=== PATIENT | male | born 1955 | race Caucasian/White ===

== ENCOUNTER → 2016-07-24 | Outpatient (CLI) | payer OTHER ==
[~2016-07-24] MED LIST: NAPR1TAB9 PO; PSEU60TA80 PO; TPRSR25 PO
[2016-07-24 17:46] LABS: HEMATOCRIT 44.9 % (42-52); MEAN CELL VOLUME 91.3 fL (80-100); MEAN CORPUSCULAR HEMOGLOBIN 30.1 pg (25-34); MEAN PLATELET VOLUME 10.9 fL (7.4-10.4); PLATELET COUNT 310 K/uL (130-400); RED BLOOD COUNT 4.92 M/uL (4.7-6.1)
[2016-07-24 17:52] LABS: CALCIUM 9.3 mg/dl (8.5-10.1)
[2016-07-24 17:55] LABS: ALT/SGPT 24 U/L (12-78); AST/SGOT 20 U/L (15-37); BLOOD UREA NITROGEN 19 mg/dl (7-18); BUN/CREATININE RATIO 16.8 (10-20); CARBON DIOXIDE 27 mmol/L (21-32); CHLORIDE 105 mmol/L (98-107); GLUCOSE 113 mg/dl (70-99); POTASSIUM 4.1 mmol/L (3.5-5.1); SODIUM 139 mmol/L (136-145)
[2016-07-24 18:05] LABS: ALB/GLOB RATIO 1.2 (0.9-2); ALKALINE PHOSPHATASE 64 U/L (45-117); RHEUMATOID FACTOR < 10.0 U/mL (0-15)
[2016-07-24 18:15] LABS: BASO ABS # 0.14 K/uL (0-0.2); BASOPHIL % 1.8 % (0-2); EOSINOPHIL % 1.8 %; LYMPH ABS # 1.38 K/uL (1.2-3.4); LYMPHOCYTE % 17.9 %; NEUTROPHILS % 71.4 %
[2016-07-24 18:18] LABS: MDIFF REQUEST YES
[2016-07-24 19:02] LABS: LYME DISEASE AB IGG NEG (NEG); LYME DISEASE AB IGM NEG (NEG)
== END | disposition home or self-care (01) ==
LOC: C.RADBC 13:34
PROVIDERS: ATTEND Family Medicine
DX: Z11.59 Encounter for screening for other viral diseases (principal); R53.83 Other fatigue

== ENCOUNTER → 2016-08-12 | Outpatient (CLI) | payer OTHER ==
--- NOTE | 2016-08-12 15:56 | DIAGNOSTIC IMAGING REPORT ---
LEFT HAND MIN 3 VIEWS ROUTINE CLINICAL HISTORY: Z79.1 NSAID long-term [id number] dyspnea COMPARISON: None. DISCUSSION: Moderate degenerative change of the interphalangeal joints throughout. No significant periarticular osteopenia. Mild degenerative change of the first carpometacarpal joint. There is no evidence for soft tissue swelling. IMPRESSION: Moderate degenerative change of the interphalangeal joints. Electronically signed by: Rafal Mistry M.D. 08/12/2016 3:55 PM Dictated Date/Time: 08/12/2016 3:54 PM
--- NOTE | 2016-08-12 15:59 | DIAGNOSTIC IMAGING REPORT ---
RIGHT HAND MIN 3 VIEWS ROUTINE CLINICAL HISTORY: Z79.1 NSAID long-term [id number] Right pain COMPARISON: None. DISCUSSION: Moderate degenerative change of the interphalangeal joints throughout the right hand. Mild degenerative change first carpometacarpal joint. No significant marginal erosions. Bone mineralization is normal. There is no evidence for soft tissue swelling. IMPRESSION: Moderate degenerative change of the interphalangeal joints throughout. Electronically signed by: Rafal Mistry M.D. 08/12/2016 3:57 PM Dictated Date/Time: 08/12/2016 3:57 PM
[2016-08-12 17:06] LABS: TOTAL IRON BINDING CAPACITY 261 mcg/dl (250-450)
== END | disposition home or self-care (01) ==
LOC: C.RAD1850 15:06
PROVIDERS: ATTEND Internal Medicine Rheumatology
DX: Z79.1 Long term (current) use of non-steroidal anti-inflammatories (NSAID) (principal)

== ENCOUNTER → 2016-08-15 | Outpatient (CLI) | payer OTHER ==
--- NOTE | 2016-08-15 10:49 | DIAGNOSTIC IMAGING REPORT ---
FLUOROSCOPICALLY GUIDED RIGHT HIP INTRA-ARTICULAR STEROID INJECTION CLINICAL HISTORY: Right hip degenerative joint disease FLUOROSCOPY TIME: 15 seconds. PROCEDURE: The procedure, risks and benefits were discussed with the patient and informed written consent was obtained. The procedure was performed by Dr. Daniel following a timeout. Skin overlying the right hip was prepped and draped in sterile fashion and local anesthesia was achieved with 1% lidocaine. Under intermittent fluoroscopic guidance, a 3 1/2 inch 22-gauge spinal needle was directed into the right hip joint. Positioning within the joint space was confirmed with injection of 1 cc of Optiray 300. At this time, 2 cc of Celestone and 8 cc of 0.5% Marcaine was injected into the right hip joint. The needle was removed. The patient tolerated the procedure well and no immediate complications were evident. IMPRESSION: Fluoroscopically guided right hip intra-articular injection of 2 cc of Celestone and 8 cc of 0.5% Marcaine. Electronically signed by: Joe Daniel M.D. 08/15/2016 10:47 AM Dictated Date/Time: 08/15/2016 10:45 AM
== END | disposition home or self-care (01) ==
LOC: C.RADBC 09:44
PROVIDERS: ATTEND Orthopaedic Surgery
DX: M16.11 Unilateral primary osteoarthritis, right hip (principal)

== ENCOUNTER → 2016-08-18 | Outpatient (CLI) | payer OTHER ==
--- NOTE | 2016-08-18 16:40 | DIAGNOSTIC IMAGING REPORT ---
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 Bilateral knee and right hip pain. COMPARISON STUDY: MRI of the left ankle dated 04/13/2014, hip anesthetic injection dated 08/15/2016 FINDINGS: The patient was injected with 26.5 mCi of technetium 99m MDP. Three-hour delayed whole body images were acquired. There are foci of increased activity involving each wrist at the level of the first carpometacarpal joints. The findings are felt to be degenerative. There is a focus of increased activity involving the mid left tibial shaft. This is likely secondary to the patient's reported prior compound fracture. There is a focus of increased activity within the left ankle. This is likely arthritic given history of prior trauma. There is intense focus of increased activity within the right hip. This is likely arthritic given the patient's known arthritis and steroid injections. There is an intense focus of increased activity involving the distal left femur/left knee. This is likely degenerative. IMPRESSION: Areas of degenerative and posttraumatic activity as described above. Electronically signed by: Kevin Beckham M.D. 08/18/2016 4:39 PM Dictated Date/Time: 08/18/2016 4:34 PM
== END | disposition home or self-care (01) ==
LOC: C.NUCL 12:27
PROVIDERS: ATTEND Internal Medicine Rheumatology
DX: Z79.1 Long term (current) use of non-steroidal anti-inflammatories (NSAID) (principal)

== ENCOUNTER → 2016-10-07 | Outpatient (CLI) | payer OTHER | END | disposition home or self-care (01) | LOC: C.LAB1850 13:05 | PROVIDERS: ATTEND Internal Medicine Rheumatology | DX: R70.0 Elevated erythrocyte sedimentation rate (principal) ==

== ENCOUNTER → 2016-11-13 | Outpatient (CLI) | payer OTHER | END | disposition home or self-care (01) | LOC: C.LAB1850 13:31 | PROVIDERS: ATTEND Internal Medicine Rheumatology | DX: M17.0 Bilateral primary osteoarthritis of knee (principal); M35.3 Polymyalgia rheumatica ==

== ENCOUNTER → 2016-12-18 | Outpatient (CLI) | payer OTHER | END | disposition home or self-care (01) | LOC: C.LAB1850 09:34 | PROVIDERS: ATTEND Internal Medicine Rheumatology | DX: R70.0 Elevated erythrocyte sedimentation rate (principal) ==

== ENCOUNTER → 2017-02-04 | Outpatient (CLI) | payer OTHER ==
--- NOTE | 2017-02-04 11:13 | DIAGNOSTIC IMAGING REPORT ---
Mery LOTT SHLDR,HIP,KNEE CLINICAL HISTORY: 61 years-old Male presenting with RIGHT HIP PAIN. COMPARISON: 08/15/2016. PROCEDURE: The risks, benefits, and alternatives to the procedure were discussed with the patient. Written informed consent was obtained. The patient was placed supine on the fluoroscopy table, and a right hip injection was performed under fluoroscopic guidance. The area was prepped and draped in the usual sterile fashion. The skin and soft tissues anesthetized with local 1% lidocaine. The right hip joint was accessed utilizing a 22-gauge needle. Approximately 1 mL of Optiray 300 was injected into the joint space under fluoroscopic guidance to confirm intra-articular positioning. Subsequently, a 10 mL mixture containing 8 mL of 0.5% Bupivacaine and 2 mL of betamethasone was injected into the joint. The procedure was well tolerated without immediate complication. Fluoroscopy dosage (mGy): Not available. Fluoroscopy time: 12 seconds. Number of fluoroscopic spot images: 0. IMPRESSION: Successful injection of the right hip under fluoroscopic guidance. Electronically signed by: Myron Salinas M.D. 02/04/2017 11:12 AM Dictated Date/Time: 02/04/2017 11:11 AM
== END | disposition home or self-care (01) ==
LOC: C.RADBC 09:36
PROVIDERS: ATTEND Orthopaedic Surgery
DX: M16.11 Unilateral primary osteoarthritis, right hip (principal)

== ENCOUNTER → 2017-03-11 | Outpatient (CLI) | payer OTHER ==
[~2017-03-11] MED LIST changes: +ACET-24 PO; +ASPI-320 PO; +CLBPO15 TOP; +NAPR-1231 PO; +RXC5 PO
[2017-03-11 14:37] LABS: BASO % 0.7 %; BASO ABS # 0.05 K/uL (0-0.2); EOS % 1.4 %; HEMATOCRIT 42.1 % (42-52); HEMOGLOBIN 14.3 g/dL (14.0-18.0); IG# 0.02 K/uL (0.00-0.02); LYMPH % 19.5 %; LYMPH ABS # 1.37 K/uL (1.2-3.4); MEAN CELL VOLUME 91.3 fL (80-100); MEAN PLATELET VOLUME 10.8 fL (7.4-10.4); MONO % 8.8 %; MONO ABS # 0.62 K/uL (0.11-0.59); NEUT % 69.3 %; NEUT ABS # 4.86 K/uL (1.4-6.5); PLATELET COUNT 256 K/uL (130-400); RED CELL DISTRIBUTION WIDTH CV 13.4 % (11.5-14.5); RED CELL DISTRIBUTION WIDTH SD 43.9 fL (36.4-46.3); WHITE BLOOD COUNT 7.02 K/uL (4.8-10.8)
[2017-03-11 16:36] LABS: ALBUMIN 4.3 gm/dl (3.4-5.0); ALKALINE PHOSPHATASE 53 U/L (45-117); ALT/SGPT 24 U/L (12-78); AST/SGOT 20 U/L (15-37); CREATININE 0.93 mg/dl (0.60-1.40); TOTAL PROTEIN 7.8 gm/dl (6.4-8.2)
== END | disposition home or self-care (01) ==
LOC: C.LAB1850 13:51
PROVIDERS: ATTEND Internal Medicine Rheumatology
DX: Z79.1 Long term (current) use of non-steroidal anti-inflammatories (NSAID) (principal)

== ENCOUNTER 2017-04-02 09:59 | Emergency (ER) | payer OTHER ==
[~2017-04-02] VITALS: Ht 180.3 cm; Wt 90.2 kg
[~2017-04-02 09:59] MED LIST changes: -ACET-24 PO; -ASPI-320 PO; -CLBPO15 TOP; -NAPR-1231 PO; -RXC5 PO
[2017-04-02 10:12] VITALS: TEMP 36.7; Ht 180.3 cm; Wt 90.2 kg
--- NOTE | 2017-04-02 11:04 | EMERGENCY ROOM VISIT NOTE ---
History Report prepared by Wolf: Ebony Flynn Under the Supervision of: Dr. Edgar Mijares D.O. First contact with patient: 10:52 Chief Complaint: KNEEPAIN Stated Complaint: L KNEE, HURT YESTERDAY History of Present Illness The patient is a 61 year old male who presents to the Emergency Room with complaints of an episode of a left knee injury occurring yesterday. The patient states he was getting out of his car when he "tweaked it". His pain worsens with movement. The patient states his knee aches and is swollen. He denies any fever, chills, nausea, chest pain, or abdominal pain. The patient states he is scheduled to get a right hip replacement in May. The patient states because of his "bad" right hip, he has been compromising by using his left leg. The patient states he wants an MRI on his knee. Source of History: patient Onset: yesterday Position: knee (left) Quality: other (injury) Timing: other (episode) Modifying Factors (Worsening): movement Associated Symptoms: No fevers, No chills, No chest pain, No nausea, No abdominal pain Review of Systems See HPI for pertinent positives & negatives. A total of 6 systems reviewed and were otherwise negative. Past Medical & Surgical Medical Problems: (1) Acid reflux (2) Chest pain Family History No pertinent family history Social History Smoking Status: Never Smoker Alcohol Use: none Drug Use: none Marital Status: Housing Status: lives with family Occupation Status: employed Current/Historical Medications Scheduled Naproxen (Naproxen), 500-1,000 MG PO UD Scheduled PRN Naproxen (Aleve), 220 MG PO UD PRN for Pain Pseudoephedrine-Guaifenesin (Mucinex D), 1 TAB PO QAM PRN for Congestion Allergies Coded Allergies: Cephalexin (Verified Allergy, Intermediate, RASH, 04/02/17) Amoxicillin (Unverified Allergy, Unknown, RASH, 04/02/17) Fentanyl (Unverified Allergy, Unknown, slows heart beat and feels like he is going to , 04/02/17) Penicillins (Verified Allergy, Unknown, RASH, 04/02/17) Azithromycin (Unverified Adverse Reaction, Unknown, HEART RACES, 04/02/17) Physical Exam Vital Signs Date Time Temp Pulse Resp B/P (MAP) Pulse Ox O2 Delivery O2 Flow Rate FiO2 04/02/17 11:57 79 18 145/83 96 Room Air 04/02/17 10:12 36.7 92 20 137/91 96 Room Air Physical Exam GENERAL: Patient is awake, alert, and in no acute distress. Patient is resting comfortably and showing no signs of anxiety EYES: The conjunctivae are clear. The pupils are round and reactive. EARS, NOSE, MOUTH AND THROAT: The nose is without any evidence of any deformity. Mucous membranes are moist tongue is midline NECK: The neck is nontender and supple. RESPIRATORY: Normal respiratory effort is noted there is no evidence of wheezing rhonchi or rales CARDIOVASCULAR: Regular rate and rhythm noted there no murmurs rubs or gallops normal S1 normal S2 GASTROINTESTINAL: The abdomen is soft. Bowel sounds are present in all quadrants. Abdomen is nontender MUSCULOSKELETAL/EXTREMITIES: Decreased ROM and small effusion on left knee, no erythema or warmth to joint, tenderness with medial and lateral stability testing. There is no evidence of gross deformity full range of motion is noted in the hips and shoulders SKIN: There is no obvious evidence of any rash. There are no petechiae, pallor or cyanosis noted. NEUROLOGIC: Patient is awake alert and oriented x3 Medical Decision & Procedures ER Provider Diagnostic Interpretation: Radiology results as stated below per my review and radiologist interpretation: L KNEE 1 OR 2 VIEWS ROUTINE DISCUSSION: Considerable degenerative change all major joint compartments. Very small joint effusion. Several synovial calcifications posterior to the proximal tibia and fibula. Small reactive osteophytic change throughout. No evidence of fracture or dislocation. There is no evidence for soft tissue swelling. IMPRESSION: Significant degenerative change. Several synovial calcifications. Moderate degenerative reactive osteophytic change throughout. Very small joint effusion. The above report was generated using voice recognition software. It may contain grammatical, syntax or spelling errors. Electronically signed by: Rafal Mistry M.D. ED Course 1056: The patient was evaluated in room A12B. A complete history and physical examination were performed. 1151: Conversation with case reviewer. We will try to get the patient an appointment with Damien. 1152: I updated the patient on his test results. 1158: Upon reevaluation, the patient is resting comfortably. I discussed the results and treatment plan with him. He verbalized agreement of the treatment plan. The patient was discharged home. Medical Decision Differential diagnosis: Etiologies such as fracture, dislocation, neurovascular compromise, compartment syndrome, soft tissue injury, as well as others were entertained. Nursing notes reviewed. The patient is a 61-year-old male who injured his left leg and started noticing some swelling. He does not describe a definite trauma but states he's been having some pain in this knee. There is no erythema or warmth to the knee. The patient was requesting an MRI. An x-ray did not show definite bony abnormality and only showed a small fusion. At this time I do not patient requires an MRI but I did offer to do an arthrocentesis to rule out an infection in the knee. The patient did not wish to have an arthrocentesis at this time. I discussed his case with the on-call case reviewer. They were able to get the patient appointment with his primary orthopedic physician. He was encouraged to continue all medications as prescribed and follow-up with his primary care physician as well as his primary orthopedist as soon as possible. Otherwise she was encouraged to return the emergency Department immediately if symptoms change worsen or the need arises. Medication Reconcilliation Current Medication List: was personally reviewed by me Blood Pressure Screening Patient's blood pressure: Elevated blood pressure Blood pressure disposition: Elevated BP felt to be situational Impression Primary Impression: Effusion of left knee Additional Impression: suspect internal derangement of left knee Scribe Attestation The scribe's documentation has been prepared under my direction and personally reviewed by me in its entirety. I confirm that the note above accurately reflects all work, treatment, procedures, and medical decision making performed by me. Departure Information Dispostion Home / Self-Care Referrals Kory Crespo D.O. (PCP) Forms HOME CARE DOCUMENTATION FORM, IMPORTANT VISIT INFORMATION Patient Instructions ED Effusion Knee, My [facility] Additional Instructions Follow-up with your primary orthopedic physician as scheduled. Continue to use an Alberto wrap as instructed. Continue all other medications as prescribed. Problem Qualifiers
--- NOTE | 2017-04-02 11:28 | DIAGNOSTIC IMAGING REPORT ---
L KNEE 1 OR 2 VIEWS ROUTINE CLINICAL HISTORY: swelling pain. Edema. COMPARISON: None. DISCUSSION: Considerable degenerative change all major joint compartments. Very small joint effusion. Several synovial calcifications posterior to the proximal tibia and fibula. Small reactive osteophytic change throughout. No evidence of fracture or dislocation. There is no evidence for soft tissue swelling. IMPRESSION: Significant degenerative change. Several synovial calcifications. Moderate degenerative reactive osteophytic change throughout. Very small joint effusion. The above report was generated using voice recognition software. It may contain grammatical, syntax or spelling errors. Electronically signed by: Rafal Mistry M.D. 04/02/2017 11:27 AM Dictated Date/Time: 04/02/2017 11:26 AM
[2017-04-02] MEDS ORDERED: NAPR500T3 PO (11:55)
[2017-04-02 11:57] VITALS: BP 145/83; PULSE 79; O2SAT 96
== END 2017-04-02 12:11 | disposition home or self-care (01) ==
LOC: C.EDB 10:01 → C.EDA 12:11
DX: M25.462 Effusion, left knee (principal); X50.9XXA Other and unspecified overexertion or strenuous movements or postures, initial encounter; K21.9 Gastro-esophageal reflux disease without esophagitis

== ENCOUNTER → 2017-05-01 | Outpatient (CLI) | payer OTHER ==
[~2017-05-01] MED LIST changes: +NAPR500T3 PO; -TPRSR25 PO
--- NOTE | 2017-05-01 10:42 | DIAGNOSTIC IMAGING REPORT ---
R INJ MAJOR JNT SHLDR,HIP,KNEE CLINICAL HISTORY: DJD RT HIPpain COMPARISON STUDY: None FLUOROSCOPY TIME: 14 seconds. FINDINGS: Following description of procedure and informed consent, fluoroscopic guidance was utilized to place a 22-gauge needle to the right hip joint space. This is followed by a therapeutic steroid injection. There were no complications. IMPRESSION: Therapeutic right hip injection. No complications. The above report was generated using voice recognition software. It may contain grammatical, syntax or spelling errors. Electronically signed by: Rafal Mistry M.D. 05/01/2017 10:41 AM Dictated Date/Time: 05/01/2017 10:40 AM
== END | disposition home or self-care (01) ==
LOC: C.RADBC 09:40
PROVIDERS: ATTEND Orthopaedic Surgery
DX: M16.12 Unilateral primary osteoarthritis, left hip (principal)

== ENCOUNTER → 2017-05-06 | Outpatient (CLI) | payer OTHER | END | disposition home or self-care (01) | LOC: C.LAB1850 11:51 | PROVIDERS: ATTEND Internal Medicine Rheumatology | DX: L40.50 Arthropathic psoriasis, unspecified (principal); Z79.1 Long term (current) use of non-steroidal anti-inflammatories (NSAID); M35.3 Polymyalgia rheumatica ==